=== PATIENT | female | born 1935 | race Caucasian/White ===

== ENCOUNTER 2017-01-13 08:36 | Outpatient (RCR) | payer MEDICARE, BC ==
[2014-06-24 20:40] VITALS: BP 132/51
[~2017-01-13 08:36] MED LIST: ASPIRIN 32325 MG/TAB PO; CALCIUM500 MG PO; INSULIN 70/3100 U/ML SQ; LISINOPRIL/HCTZ1 TA1 PO; LISINOPRIL/HCTZ1 TA2 PO; METOPROLOL SUCC50 MG PO; MULTIPLE VITAMI1 CAP PO; ZOCOR20 MG PO
== END 2017-02-15 14:38 | disposition home or self-care (01) ==
LOC: PT 08:36
DX: M54.5 Low back pain (principal)

== ENCOUNTER 2019-04-09 16:14 | Emergency (ER) | payer MEDICARE, BC ==
[~2019-04-09] VITALS: Ht 154.9 cm; Wt 84.1 kg
[~2019-04-09 16:14] MED LIST changes: -METOPROLOL SUCC50 MG PO; +TOPROL XL100 MG PO; -ZOCOR20 MG PO; +ZOCOR40 M1 PO
[2019-04-09] MEDS ORDERED: INSULIN NOVO100 U/ML SC (17:02)
[2019-04-09 17:45] LABS: EOS # 0.1 (0.04-0.40); EOS % 0.5 % (1.0-5.0); HEMATOCRIT 41.9 % (37.0-47.0); HEMOGLOBIN 13.7 g/dL (12.5-16.0); MEAN CELL VOLUME 91 fl (78-100); MEAN CORPUSCULAR HEMOGLOBIN 30 pg (27-31); MEAN CORPUSCULAR HGB CONC 33 g/dL (33-37); MONO # 1.1 (0.20-0.80); NEU # 8.9 (1.40-6.50); PLATELET COUNT 209 K/mm3 (130-400); RED CELL DISTRIBUTION WIDTH 12.9 % (11.5-14.5)
[2019-04-09 17:49] LABS: MEAN PLATELET VOLUME 12.5 fl (7.4-10.4)
[2019-04-09 18:05] LABS: ALBUMIN 4.3 g/dL (3.4-4.8); CALCIUM 10.4 mg/dL (8.3-10.5); POTASSIUM 4.6 mmol/L (3.5-5.1); TOTAL BILIRUBIN 0.3 mg/dL (0.2-1.2); TOTAL PROTEIN 7.9 g/dL (6.2-8.1)
[2019-04-09] MEDS ORDERED: HYDROCHLOROTHIA1 T15 PO (18:43)
[2019-04-09 22:21] VITALS: BP 169/70
== END 2019-04-09 21:50 | disposition home or self-care (01) ==
LOC: ED 16:14
PROVIDERS: Family Medicine
DX: E11.649 Type 2 diabetes mellitus with hypoglycemia without coma (principal); I10 Essential (primary) hypertension; E78.5 Hyperlipidemia, unspecified

== ENCOUNTER 2019-05-27 10:22 | Emergency (ER) | payer MEDICARE, BC ==
[~2019-05-27 10:22] MED LIST changes: +HYDROCHLOROTHIA1 T15 PO; +INSULIN NOVO100 U/ML SC
[2019-05-27] MEDS ORDERED: VITAMIN C PURE500 M1 PO (10:39)
[2019-05-27] MEDS ORDERED: MAGNESIUM OXID200 MG (10:40)
[2019-05-27] MEDS ORDERED: FISH OIL 1,2001 EACH PO (10:41)
[2019-05-27] MEDS ORDERED: LATANOPROST 2.2.5 ML OU (11:05)
[2019-05-27] MEDS ORDERED: AUGMENTIN 875-1 EAC1 PO (11:36)
[2019-05-27 11:45] VITALS: BP 189/82
== END 2019-05-27 11:50 | disposition home or self-care (01) ==
LOC: ED 10:22
DX: K05.10 Chronic gingivitis, plaque induced (principal); E11.9 Type 2 diabetes mellitus without complications; I10 Essential (primary) hypertension; Z79.82 Long term (current) use of aspirin; Z79.4 Long term (current) use of insulin

== ENCOUNTER → 2021-11-20 | Outpatient (CLI) | payer MEDICARE, BC ==
[~2021-11-20] MED LIST changes: +AUGMENTIN 875-1 EAC1 PO; +FISH OIL 1,2001 EACH PO; +LATANOPROST 2.2.5 ML OU; +MAGNESIUM OXID200 MG; +VITAMIN C PURE500 M1 PO
[2021-11-20 15:09] LABS: URINE APPEARANCE HAZY; URINE COLOR YELLOW
[2021-11-20 15:10] LABS: URINE BILIRUBIN 1+ (NEGATIVE); URINE BLOOD NEGATIVE (NEGATIVE); URINE KETONE NEGATIVE (NEGATIVE); URINE LEUKOCYTE ESTERASE NEGATIVE (NEGATIVE); URINE NITRATE NEGATIVE (NEGATIVE); URINE PROTEIN(semi-quant) 1+ (NEGATIVE); URINE UROBILINOGEN NORMAL (NORMAL)
== END ==
LOC: LAB 13:52
PROVIDERS: Family Medicine
DX: Z01.89 Encounter for other specified special examinations (principal)

== ENCOUNTER 2022-01-07 12:19 | Emergency (ER) | payer MEDICARE, BC ==
[~2022-01-07] VITALS: Wt 73.8 kg
[2022-01-07 12:31] VITALS: BP 186/65
[2022-01-07] MEDS ORDERED: QUETIAPINE FUMA25 M3 PO (13:00)
== END 2022-01-07 16:00 | disposition home or self-care (01) ==
LOC: ED 12:19
DX: R05.9 Cough, unspecified (principal)

== ENCOUNTER 2022-02-08 09:13 | Emergency (ER) | payer MEDICARE, BC ==
[~2022-02-08] VITALS: Ht 167.6 cm; Wt 71.9 kg
[~2022-02-08 09:13] MED LIST changes: +QUETIAPINE FUMA25 M3 PO
[2022-02-08] MEDS ORDERED: DONEPEZIL HCL5 M1 PO (09:44)
[2022-02-08] MEDS ORDERED: ASPIRIN 81M81 MG/TA2 PO (09:46)
[2022-02-08] MEDS ORDERED: ATORVASTATIN CA40 MG PO (09:46)
[2022-02-08] MEDS ORDERED: CLOPIDOGREL75 M2 PO (09:47)
[2022-02-08] MEDS ORDERED: NEIGHBOR P PO (09:48)
[2022-02-08 09:55] LABS: BASO # 0.08 K/mm3 (0.02-0.10); EOS # 0.15 K/mm3 (0.04-0.40); EOS % 1.6 % (1.0-5.0); HEMOGLOBIN 12.1 g/dL (12.5-16.0); LYMPH# 2.75 K/mm3 (1.50-4.00); MEAN CELL VOLUME 92 fl (78-100); MEAN CORPUSCULAR HEMOGLOBIN 29 pg (27-31); MEAN CORPUSCULAR HGB CONC 32 g/dL (33-37); MEAN PLATELET VOLUME 11.3 fl (7.4-10.4); MONO # 0.98 K/mm3 (0.20-0.80); NEU # 5.29 K/mm3 (1.40-6.50); PLATELET COUNT 209 K/mm3 (130-400); RED BLOOD COUNT 4.14 M/mm3 (4.10-5.30); RED CELL DISTRIBUTION WIDTH 13.2 % (11.5-14.5); WHITE BLOOD COUNT 9.3 K/mm3 (4.8-10.8)
[2022-02-08 10:15] LABS: ALBUMIN 3.7 g/dL (3.4-4.8); POTASSIUM 4.6 mmol/L (3.5-5.1)
[2022-02-08 10:16] LABS: CALCIUM 9.8 mg/dL (8.3-10.5)
[2022-02-08 10:18] LABS: TOTAL PROTEIN 7.2 g/dL (6.2-8.1)
[2022-02-08 10:19] LABS: TOTAL BILIRUBIN 0.6 mg/dL (0.2-1.2)
[2022-02-08 10:40] LABS: URINE APPEARANCE CLEAR; URINE COLOR YELLOW
[2022-02-08 10:41] LABS: URINE BILIRUBIN NEGATIVE (NEGATIVE); URINE BLOOD 50 ery/uL (NEGATIVE); URINE KETONE NEGATIVE (NEGATIVE); URINE LEUKOCYTE ESTERASE TRACE (NEGATIVE); URINE NITRATE NEGATIVE (NEGATIVE); URINE PROTEIN(semi-quant) 1+ (NEGATIVE); URINE UROBILINOGEN NORMAL (NORMAL)
[2022-02-08 13:04] VITALS: BP 146/78
== END 2022-02-08 13:04 | disposition home or self-care (01) ==
LOC: ED 09:13
PROVIDERS: Family Medicine
DX: G31.83 Neurocognitive disorder with Lewy bodies (principal); F02.80 Dementia in other diseases classified elsewhere, unspecified severity, without behavioral disturbance, psychotic disturbance, mood disturbance, and anxiety; I10 Essential (primary) hypertension; E11.65 Type 2 diabetes mellitus with hyperglycemia; G45.9 Transient cerebral ischemic attack, unspecified; Z79.4 Long term (current) use of insulin
CPT/HCPCS: J1815

== ENCOUNTER 2022-08-22 16:44 | Emergency (ER) | payer MEDICARE, BC ==
[~2022-08-22 16:44] MED LIST changes: +ASPIRIN 81M81 MG/TA2 PO; +ATORVASTATIN CA40 MG PO; +CLOPIDOGREL75 M2 PO; +DONEPEZIL HCL5 M1 PO; +NEIGHBOR P PO
[2022-08-22 17:49] LABS: BASO # 0.03 K/mm3 (0.02-0.10); EOS # 0.27 K/mm3 (0.04-0.40); EOS % 3.3 % (1.0-5.0); HEMATOCRIT 38.3 % (37.0-47.0); HEMOGLOBIN 12.6 g/dL (12.5-16.0); LYMPH# 2.59 K/mm3 (1.50-4.00); MEAN CELL VOLUME 92 fl (78-100); MEAN CORPUSCULAR HEMOGLOBIN 30 pg (27-31); MEAN CORPUSCULAR HGB CONC 33 g/dL (33-37); MEAN PLATELET VOLUME 11.5 fl (7.4-10.4); MONO # 0.84 K/mm3 (0.20-0.80); NEU # 4.56 K/mm3 (1.40-6.50); PLATELET COUNT 199 K/mm3 (130-400); RED BLOOD COUNT 4.17 M/mm3 (4.10-5.30); RED CELL DISTRIBUTION WIDTH 12.4 % (11.5-14.5); WHITE BLOOD COUNT 8.3 K/mm3 (4.8-10.8)
[2022-08-22 17:56] LABS: ALBUMIN 3.7 g/dL (3.4-4.8)
[2022-08-22 17:57] LABS: POTASSIUM 4.3 mmol/L (3.5-5.1)
[2022-08-22 17:58] LABS: CALCIUM 9.8 mg/dL (8.3-10.5)
[2022-08-22 17:59] LABS: TOTAL PROTEIN 7.1 g/dL (6.2-8.1)
[2022-08-22 18:01] LABS: TOTAL BILIRUBIN 0.4 mg/dL (0.2-1.2)
[2022-08-22 18:07] LABS: URINE APPEARANCE CLEAR; URINE BILIRUBIN NEGATIVE (NEGATIVE); URINE BLOOD NEGATIVE (NEGATIVE); URINE COLOR YELLOW; URINE GLUCOSE NEGATIVE (NEGATIVE); URINE KETONE NEGATIVE (NEGATIVE); URINE LEUKOCYTE ESTERASE NEGATIVE (NEGATIVE); URINE NITRATE NEGATIVE (NEGATIVE); URINE PROTEIN(semi-quant) TRACE (NEGATIVE); URINE UROBILINOGEN NORMAL (NORMAL); URINE WBC 0-1 /hpf (0-3)
[2022-08-22 19:57] VITALS: BP 127/68
== END 2022-08-22 19:58 | disposition home or self-care (01) ==
LOC: ED 16:44
PROVIDERS: Family Medicine
DX: I12.9 Hypertensive chronic kidney disease with stage 1 through stage 4 chronic kidney disease, or unspecified chronic kidney disease (principal); E11.22 Type 2 diabetes mellitus with diabetic chronic kidney disease; N18.9 Chronic kidney disease, unspecified; M54.50 Low back pain, unspecified; G31.83 Neurocognitive disorder with Lewy bodies; F02.80 Dementia in other diseases classified elsewhere, unspecified severity, without behavioral disturbance, psychotic disturbance, mood disturbance, and anxiety; Z79.4 Long term (current) use of insulin